=== PATIENT | male | born 1945 | race African-American/Black ===

== ENCOUNTER 2017-03-31 17:20 | Emergency (ER) | payer MEDICARE, OTHER ==
[~2017-03-31 17:20] MED LIST: CYCL10TA2 PO; METF-620 PO
[2017-03-31] MEDS ORDERED: KETOROLAC TROMETHAMINE 60 MG/2 ML INJ. IM ONE (18:00)
[2017-03-31 18:03] VITALS: BP 150/80
--- NOTE | 2017-03-31 18:13 | PHYS DOC ---
Past Medical History Past Medical History: No Pertinent History Past Surgical History: No Surgical History Alcohol Use: None Drug Use: None Adult General Chief Complaint Chief Complaint: UPPER EXTREMITY PAIN [facility] HPI Patient is a 71 year old male presents to the emergency department with complaints of left shoulder pain. He states he's had chronic left shoulder pain since a dislocation approximately 5 years ago. Patient states he's had difficulty with lifting his arm above his head since that dislocation 5 years ago. He states for the last 2 days he's had increasing pain in the shoulder joint and in the upper back. He reports no headache, no chest pain, no neck pain , no lightheadedness, no nausea, no vomiting, no abdominal pain. He denies loss of function of upper or lower extremity is. Review of Systems Review of Systems Constitutional: Denies fever or chills [] Eyes: Denies change in visual acuity, redness, or eye pain [] HENT: Denies nasal congestion or sore throat [] Respiratory: Denies cough or shortness of breath [] Cardiovascular: No additional information not addressed in HPI [] GI: Denies abdominal pain, nausea, vomiting, bloody stools or diarrhea [] : Denies dysuria or hematuria [] Musculoskeletal: Left shoulder pain Integument: Denies rash or skin lesions [] Neurologic: Denies headache, focal weakness or sensory changes [] Endocrine: Denies polyuria or polydipsia [] Current Medications Current Medications Current Medications Medications (Trade) Dose Ordered [facility] Start Time Stop Time Status Last Admin Dose Admin Ketorolac Tromethamine (Toradol Im) 30 mg 1X ONCE 03/31/17 18:00 03/31/17 18:01 DC Allergies Allergies Allergies Coded Allergies Type Severity Reaction Last Updated Verified No Known Drug Allergies 03/20/16 No Physical Exam Physical Exam Constitutional: Well developed, well nourished, no acute distress, non-toxic appearance. [] HENT: Normocephalic, atraumatic, bilateral external ears normal, oropharynx moist, no oral exudates, nose normal. [] Eyes: PERRLA, EOMI, conjunctiva normal, no discharge. [] Neck: Normal range of motion, no tenderness, supple, no stridor. [] Cardiovascular:Heart rate regular rhythm, no murmur, no lower extremity edema [] Lungs & Thorax: Bilateral breath sounds clear to auscultation [] Abdomen: Bowel sounds normal, soft, no tenderness, no masses, no pulsatile masses. [] Skin: Warm, dry, no erythema, no rash. [] Back: No tenderness, no CVA tenderness. [] Extremities: Reproducible pain in the left shoulder, anteriorly, with range of motion. Patient will allow for full range of motion, passive, but is unable to abduct the left upper extremity past 90 angle. Left elbow exam is unremarkable. He does have mild tenderness over left trapezius. Neurovascular is intact distally. Neurologic: Alert and oriented X 3, normal motor function, normal sensory function, no focal deficits noted. [] Psychologic: Affect normal, judgement normal, mood normal. [] EKG EKG [] Radiology/Procedures Radiology/Procedures Review of left shoulder x-ray, no acute changes [] Course & Med Decision Making Course & Med Decision Making Pertinent Labs and Imaging studies reviewed. (See chart for details) [] Dragon Disclaimer Dragon Disclaimer This electronic medical record was generated, in whole or in part, using a voice recognition dictation system. Departure Departure Impression: Primary Impression: Staphylococcal arthritis, left shoulder Disposition: 01 HOME, SELF-CARE Condition: STABLE Referrals: MIKEL BAKER MD (PCP) Patient Instructions: Arm Sling Use, [id number], Shoulder Pain Scripts Naproxen (NAPROSYN) 500 Mg Tablet 500 MG PO BID, #20 TAB Prov: MELISSA ROSENBAUM APRN 03/31/17 MELISSA ROSENBAUM APRN Mar 31, 2017 18:13
[2017-03-31] MEDS ORDERED: NAPR500T PO (18:16)
--- NOTE | 2017-04-01 08:04 | RAD ---
Exam: Left shoulder radiograph 03/31/2017 at 1757 hours Indication: Left shoulder pain for 2 weeks Comparison: None available Technique: 3 views of the left shoulder are provided Findings: There is no acute fracture or dislocation involving the acromioclavicular and glenohumeral joints. Mild glenohumeral joint space narrowing. No soft tissue swelling. No osseous erosion or soft tissue gas. Bone mineralization is within normal limits. Impression: No acute fracture or dislocation. Mild glenohumeral osteoarthrosis.
== END 2017-03-31 18:50 | disposition home or self-care (01) ==
LOC: ER 17:20
DX: M00.012 Staphylococcal arthritis, left shoulder (principal); B95.8 Unspecified staphylococcus as the cause of diseases classified elsewhere; G89.29 Other chronic pain
CPT/HCPCS: 73030; 96372; 99284; J1885